=== PATIENT | female | born 1955 | race Caucasian/White ===

== ENCOUNTER 2016-12-11 11:19 | Outpatient (CLI) | payer OTHER ==
--- NOTE | 2016-12-11 12:23 | MMO ---
BILATERAL SCREENING MAMMOGRAM: INDICATION: Annual exam. COMPARISON: Prior exam dated 10/20/14. FINDINGS: The interpretation of the examination was assisted with computer-aided detection. The breast parenchyma demonstrates scattered fibroglandular elements. There are benign-appearing calcifications bilaterally. No new suspicious mass, cluster of microcalcifications, or area of architectural distortion is evide nt. IMPRESSION: BI-RADS category 2 - benign. Recommend routine annual mammographic screening. POS: MAGDY
== END 2016-12-11 11:20 | disposition home or self-care (01) ==
LOC: SCSMAMMO 11:19
PROVIDERS: ATTEND Family Medicine
DX: Z12.31 Encounter for screening mammogram for malignant neoplasm of breast (principal)
CPT/HCPCS: 77067; G0202

== ENCOUNTER 2017-12-12 10:30 | Outpatient (CLI) | payer OTHER ==
--- NOTE | 2017-12-12 16:24 | MMO ---
BILATERAL SCREENING MAMMOGRAMS: Date: 12/12/17 Comparison made to prior exams from 2017 and 2016. This patient's mammogram was interpreted with the assistance of computer-aided detection. FINDINGS: Scattered fibroglandular densities. Scattered benign-appearing calcifications. No evidence of mass or distortion. No significant interval change identified. Recommend one year follow-up. IMPRESSION: BIRADS 2: Benign Finding(s) POS: MAGDY
== END 2017-12-12 10:31 | disposition home or self-care (01) ==
LOC: SCSMAMMO 10:30
PROVIDERS: ATTEND Family Medicine
DX: Z12.31 Encounter for screening mammogram for malignant neoplasm of breast (principal)
CPT/HCPCS: 77067

== ENCOUNTER 2018-06-05 17:52 | Emergency (ER) | payer OTHER ==
[2018-06-05] MEDS ORDERED: Lidocaine 1% PF 5 ML VIAL ONE (18:22)
[2018-06-05] MEDS ORDERED: Lidocaine 1% w/Epinephrine 1:100K 20 ML VIAL ONE (18:23)
[2018-06-05] MEDS ORDERED: Adacel (T-DAP) 0.5 ML SYRINGE ONE (18:39)
== END 2018-06-05 19:54 | disposition home or self-care (01) ==
LOC: SCSER 17:52
DX: S61.412A Laceration without foreign body of left hand, initial encounter (principal); E03.9 Hypothyroidism, unspecified; E78.5 Hyperlipidemia, unspecified; G47.00 Insomnia, unspecified; Z79.82 Long term (current) use of aspirin; Z79.899 Other long term (current) drug therapy; W26.8XXA Contact with other sharp object(s), not elsewhere classified, initial encounter
CPT/HCPCS: 12001; 90471; 90715; J2001

== ENCOUNTER 2018-06-22 10:02 | Outpatient (CLI) | payer OTHER | END 2018-06-22 10:03 | disposition home or self-care (01) | PROVIDERS: ATTEND Otolaryngology Plastic Surgery within the Head & Neck | DX: R13.13 Dysphagia, pharyngeal phase (principal) | CPT/HCPCS: 74230 ==

== ENCOUNTER 2018-07-07 07:37 | Outpatient (CLI) | payer OTHER ==
--- NOTE | 2018-07-07 08:50 | RAD ---
XR Barium Swallow Esophagus HISTORY: Esophageal stricture and gastric sleeve. Patient feels like food gets stuck. COMPARISON: None. FINDINGS: The patient ingested barium and crystals without difficulty. The esophageal mucosa is yariel l. There is some mild dilatation to the distal esophagus and a lack of normal esophageal motility. There is a lack of the normal stripping wave associated with normal peristaltic activity. There are s ome tertiary contractions of the distal esophagus noted. A hiatal hernia is noted. The patient was given a a barium tablet. The tablet passed through the GE j unction region without difficulty, it remained within the hernia during the course of this examination. IMPRESSION: 1. Mild hiatal hernia. 2. Some slight dilatation to the distal esophagus with the lack of normal peristaltic activity as sophia cribed above.
== END 2018-07-07 07:38 | disposition home or self-care (01) ==
LOC: RAD 07:37
PROVIDERS: ATTEND Otolaryngology Plastic Surgery within the Head & Neck
DX: R13.13 Dysphagia, pharyngeal phase (principal); K44.9 Diaphragmatic hernia without obstruction or gangrene; K22.8 Other specified diseases of esophagus; Z87.19 Personal history of other diseases of the digestive system
CPT/HCPCS: 74220

== ENCOUNTER 2018-10-19 07:29 | Outpatient (CLI) | payer OTHER ==
--- NOTE | 2018-10-19 12:45 | NM ---
RADIONUCLIDE GASTRIC EMPTYING SCAN: HISTORY: Gastroesophageal reflux disease without esophagitis. RADIOPHARMACEUTICAL: 2.2 mCi Technetium 99m-sulfur colloid administered orally in scrambled eggs. FINDINGS: There is 32% emptying of the ingested gastric contents at 1 hour, 30% at 2 hours, 56% emptying at 3 h ours, and 54% emptying at 4 hours. The calculated gastric emptying half-time measures 123 minutes. IMPRESSION: Delayed gastric emptying. POS: TPC
== END 2018-10-19 07:30 | disposition home or self-care (01) ==
LOC: NM 07:29
PROVIDERS: ATTEND Specialist
DX: K21.9 Gastro-esophageal reflux disease without esophagitis (principal)
CPT/HCPCS: 78264; A9541

== ENCOUNTER → 2018-10-20 | Day surgery (SDC) | payer OTHER | LOC: ENDO/OP 07:45 | PROVIDERS: ATTEND Specialist | DX: K21.9 Gastro-esophageal reflux disease without esophagitis (principal); E78.5 Hyperlipidemia, unspecified; E07.9 Disorder of thyroid, unspecified; Z98.84 Bariatric surgery status; Z88.1 Allergy status to other antibiotic agents | CPT/HCPCS: 91010 ==

== ENCOUNTER 2018-12-08 14:17 | Outpatient (CLI) | payer OTHER | END 2018-12-08 14:18 | disposition home or self-care (01) | LOC: DTY/OP 14:17 | PROVIDERS: ATTEND Specialist | DX: Z01.818 Encounter for other preprocedural examination (principal); E66.01 Morbid (severe) obesity due to excess calories | CPT/HCPCS: 97802 ==

== ENCOUNTER 2019-01-15 09:30 | Outpatient (CLI) | payer OTHER ==
--- NOTE | 2019-01-17 16:26 | EKG ---
Test Reason : Blood Pressure : / mmHG Vent. Rate : 081 BPM Atrial Rate : 081 BPM P-R Int : 138 ms QRS Dur : 094 ms QT Int : 404 ms P-R-T Axes : 032 049 032 degrees QTc Int : 469 ms Normal sinus rhythm Normal ECG No previous ECGs available Confirmed by DR. Madonna TRUJILLO ([id number]) on 01/17/2019 4:25:37 PM Referred By: VELIA Confirmed By:DR. Madonna TRUJILLO
== END 2019-01-15 09:31 | disposition home or self-care (01) ==
LOC: LABBT 09:30
PROVIDERS: ATTEND Specialist
DX: Z01.818 Encounter for other preprocedural examination (principal); K21.9 Gastro-esophageal reflux disease without esophagitis; Z98.84 Bariatric surgery status
CPT/HCPCS: 93005; 93010

== ENCOUNTER 2019-01-15 13:30 | Inpatient (IN) | payer OTHER ==
[2019-01-19] MEDS ORDERED: Ketorolac Tromethamine 30 MG/ML VIAL ONE (07:11)
[2019-01-19] MEDS ORDERED: cefOXitin 2 GM VIAL ONE (07:11)
[2019-01-19] MEDS ORDERED: Scopolamine 1.5 mg/72 hour Patch ONE (07:11)
[2019-01-19] MEDS ORDERED: Sodium Chloride 0.9% 100 ML ONE (07:12)
[2019-01-19] MEDS ORDERED: Fentanyl 250 MCG/5 ML VIAL ONE (07:14)
[2019-01-19] MEDS ORDERED: Midazolam HCl 2 mg/2 ml Vial ONE (07:14)
[2019-01-19] MEDS ORDERED: Bupivacaine PF 0.5% 30 ML VIAL ONE ×2 (07:19)
[2019-01-19] MEDS ORDERED: Heparin 5,000 UNITS/ML VIAL ONE (07:19)
[2019-01-19] MEDS ORDERED: Lidocaine 1% w/Epinephrine 1:100K 20 ML VIAL ONE (07:19)
[2019-01-19] MEDS ORDERED: Piperacillin/Tazobactam 3.375 GM VIAL ONE (07:23)
[2019-01-19] MEDS ORDERED: Glycopyrrolate 0.2 MG/ML 5 ML SYRINGE ONE (09:51)
[2019-01-19] MEDS ORDERED: PROPOFOL 200 MG/20 ML VIAL ONE (09:51)
[2019-01-19] MEDS ORDERED: Ondansetron PF 4 MG/2 ML Vial ONE (09:51)
[2019-01-19] MEDS ORDERED: Dexamethasone 20 MG/5 ML VIAL ONE (09:51)
[2019-01-19] MEDS ORDERED: Succinylcholine Chloride 20 MG/ML 10 ml SYRINGE FS ONE (09:51)
[2019-01-19] MEDS ORDERED: Rocuronium Bromide 10 MG/ML (10ML VIAL) ONE (09:51)
[2019-01-19] MEDS ORDERED: Promethazine HCl 25 MG/ML VIAL IM PRN (10:59)
[2019-01-19] MEDS ORDERED: Ondansetron PF 4 MG/2 ML Vial IVP PRN (10:59)
[2019-01-19] MEDS ORDERED: Dextrose 50% Abboject 50 ML SYRINGE SLOW IVP PRN (10:59)
[2019-01-19] MEDS ORDERED: hydrALAZINE 20 MG/ML VIAL SLOW IVP PRN (10:59)
[2019-01-19] MEDS ORDERED: Morphine 2 MG/ML SYRINGE SLOW IVP PRN (10:59)
[2019-01-19] MEDS ORDERED: diphenhydrAMINE 50 MG/ML VIAL IVP PRN (10:59)
[2019-01-19] MEDS ORDERED: Morphine 4 MG/ML VIAL SLOW IVP PRN (10:59)
[2019-01-19] MEDS ORDERED: Dextrose 5% in Water 1,000 ML IV PRN (10:59)
[2019-01-19] MEDS ORDERED: Sodium Chloride 0.9% (PF) 10 ML VIAL FS PRN (11:09)
[2019-01-19] MEDS ORDERED: Pantoprazole 40 MG VIAL IVP SCH (11:15)
[2019-01-19] MEDS ORDERED: D5 1/2 NS w/20 mEq KCL 1,000 ML ONE (11:39)
[2019-01-19] MEDS: Ketorolac Tromethamine 30 MG/ML VIAL IVP SCH ×3 (12:00→23:21)
--- NOTE | 2019-01-19 14:20 | OP ---
DATE OF PROCEDURE: 01/19/2019 PREOPERATIVE DIAGNOSIS: History of sleeve gastrectomy with gastroesophageal reflux disease. POSTOPERATIVE DIAGNOSES: 1. History of sleeve gastrectomy with gastroesophageal reflux disease. 2. Substantial hiatal hernia. OPERATIONS PERFORMED: 1. Laparoscopic repair of hiatal hernia. 2. Laparoscopic Wendy-en-Y gastric bypass. CRAB BACKER: Fatuma Chirinos, medical student. ANESTHESIA: General endotracheal. INDICATIONS: The patient is a 63-year-old white female. She has a history of a sleeve gastrectomy several years ago. She has had successful weight loss and her current BMI is about 26.5. She, however, has incapacitating gastroesophageal reflux disease and presents at this time for revision surgery to convert her sleeve to a bypass in treatment of her reflux. DESCRIPTION OF OPERATION: Informed consent was obtained. The patient was taken to the operating room, where general endotracheal anesthesia was obtained with the patient in supine position. Abdomen was prepped with ChloraPrep and draped in sterile fashion. Local anesthetic was infiltrated. A 5-mm infraumbilical incision was created, through which a Veress needle was passed in the peritoneal cavity and pneumoperitoneum was established using carbon dioxide up to pressure of 15 mmHg. A 5-mm trocar port site was established using the same incision. Laparoscopic camera was passed through this port. Under direct vision, 4 additional ports were placed including bilateral subcostal 5-mm ports, a left paramedian 15-mm port, and a right paramedian 12-mm port. Later in the case, I placed an epigastric 5 mm Sofia retractor for elevation of the left lobe of the liver. Examination within the abdomen revealed no adhesions to the anterior abdominal wall. There were some omental adhesions to the left upper quadrant, but that was it. The omentum was split in the midline up to the transverse colon. The ligament of Treitz was identified, and 40 cm distally, the small bowel was divided transversely. 100 cm distally, I created a jejunojejunostomy between the biliary limb and the Wendy limb using a single fire of the PAMELA 60 stapler. The enterotomy was closed with another transverse firing of the same stapler. Mesenteric defect was closed with 2 interrupted [id number] sutures of 3-0 Vicryl. The patient was then placed in reverse Trendelenburg position and examination of the stomach was carried out. She was noted unfortunately to have a substantial hiatal hernia with stomach present within the mediastinum. A fairly lengthy dissection occurred at the hiatus because of scarring from her previous surgery. I was able to meticulously dissect both the left and right crura without injury to the stomach or esophagus. The esophagus was widely mobilized to the abdomen and mediastinal adhesions were taken down. The hiatal hernia was closed with 2 posterior sutures of 0 Ethibond. This provided excellent closure around the esophagus. About 5 cm from the GE junction, the lesser curvature was dissected. I quickly gained access to what remained of the lesser sac. The stomach was then divided with a single transverse fire of the blue load of the [place] stapler. The Orvil was then passed through the mouth and the tip was brought out just posterior to the staple line by incising the stomach. It was only with difficulty that the anvil was able to pass through the oropharynx down into the esophagus. Once it was pulled through the oropharynx, it pulled easily through the esophagus to the gastric staple line. The tube was disconnected from the anvil and removed and gloves were changed. Attention was then turned to the small bowel. An enterotomy was created in the devascularized segment of the small bowel. The EEA 25 stapler was advanced uneventfully into the small bowel, where it was advanced beyond the split in the mesentery. The spike was advanced antimesenteric through the small bowel wall and secured to the anvil within the stomach. These 2 segments were approximated and anastomosed by firing the stapler. The redundant segment of small bowel was removed along with the enterotomy with a final firing of the white load of the [place] stapler. The anastomosis was buttressed with 3 interrupted sutures of 3-0 Vicryl. The OG tube was then passed through the anastomosis and the anastomosis was air leak tested while under water with no evidence of leak. All irrigant was aspirated. The fascial defect at the 15 and 12-mm port sites were closed with 0 Vicryl suture using a GraNee needle. All ports and instruments were removed under direct vision. Pneumoperitoneum was carefully evacuated. 0.25% Marcaine with epinephrine was infiltrated at each port sites. Skin edge was approximated with 4-0 Monocryl subcuticular suture. Dermabond was placed externally. There were no complications. The patient tolerated the procedure well and was taken to recovery room in stable condition. Job ID: [id number]
[2019-01-19] MEDS: D5 1/2 NS w/20 mEq KCL 1,000 ML IV SCH ×2 (16:06→18:24)
[2019-01-19] MEDS: Acetaminophen 1,000 MG in Premix Bag 1 BAG IVPB SCH ×2 (16:07→19:56)
[2019-01-19 18:36] VITALS: BMI 27.5
[2019-01-19] MEDS ORDERED: Enoxaparin Sodium 40 MG/0.4 ML SYRINGE SC SCH (21:00)
[2019-01-20] MEDS: Acetaminophen 1,000 MG in Premix Bag 1 BAG IVPB SCH ×4 (01:21→23:04)
[2019-01-20] MEDS: D5 1/2 NS w/20 mEq KCL 1,000 ML IV SCH ×3 (01:21→21:02)
[2019-01-20 06:08] LABS: #Lymphocytes 1.5 thou/uL (1.20-3.40); #Monocytes 0.7 thou/uL (0.11-0.59); #Neutrophils 10.1 thou/uL (1.40-6.50); %Basophils 0.1 % (0.0-1.0); %Eosinophils 0.2 % (0.0-10.0); %Lymphocytes 12.4 % (21.0-51.0); %Monocytes 5.5 % (0.0-10.0); %Neutrophils 81.8 % (42.0-75.0); Mean Corpuscular HGB CONC 33.9 g/dL (32.0-36.0); Mean Corpuscular Hemoglobin 29.9 pg (27.0-31.0); Mean Corpuscular Volume 88.1 fL (78.0-98.0); Mean Platelet Volume 7.6 fL (7.4-10.4); Platelet Count 155 thou/uL (130-400); RBC Distribution Width 11.6 % (11.5-14.5); Red Blood Cell (RBC) Count 4.01 mill/uL (4.20-5.40); White Blood Cell (WBC) Count 12.3 thou/uL (4.8-10.8)
[2019-01-20] MEDS: Ketorolac Tromethamine 30 MG/ML VIAL IVP SCH (06:12)
[2019-01-20 06:25] LABS: Anion Gap 12 mmol/L (10-20); BUN (Urea Nitrogen) 25 mg/dL (9.8-20.1); Calc. Creatinine Clearance 90 mL/min (70-130); Calcium 7.8 mg/dL (7.8-10.44); Carbon Dioxide 19 mmol/L (23-31); Chloride 107 mmol/L (98-107); Estimated GFR-MDRD 86; Glucose 111 mg/dL (80-115); Potassium 4.3 mmol/L (3.5-5.1); Sodium 134 mmol/L (136-145)
--- NOTE | 2019-01-20 07:35 | PDOC.GSPN ---
Surgery Progress Note: Subj - Subjective Narrative: Ms. Vo is a 63 year old female who is POD 1 from a laparoscopic Wendy en Y gastric bypass with hiatal hernia repair for severe reflux after a sleeve gastrectomy. Overnight she had bloody emesis x3 that was a dark maroon color rather than bright red blood. She reports some nausea just prior to vomiting, but otherwise feels well. She has some soreness but minimal pain, mainly at the LLQ incision site. She is ambulating without difficulty and is voiding normally. She was on a bariatric clear liquid diet overnight, but reports that she mainly has been taking only ice chips. She is on D5 1/2 NS with 20 KCl at 75 mL/hr. She denies any GERD symptoms overnight. She has not had any bowel movements since surgery. Surgery Progress Note: Obj - Vital signs Vital signs: Vital Signs - Most Recent Temp Pulse Resp BP Pulse Ox 98.5 F 92 16 95/65 93 L 01/20/19 04:05 01/20/19 04:05 01/20/19 04:05 01/20/19 04:05 01/20/19 04:05 - Physical Exam General: no distress, other (mild pain, particularly at the LLQ incision site) Cardiovascular: regular rate and rhythm, no murmur Respiratory: clear to auscultation, normal respiratory effort (mild abdominal discomfort with deep inspiration) Abdomen: soft, nondistended, decreased bowel sounds (minimal bowel sounds present on auscultation), appropriately tender Wound: healing well (normal ecchymosis surrounding the six incision sites). negative: drainage, erythma/edema Surgery Progress Note: Results - Labs Result Diagrams: 01/20/19 05:11 01/20/19 05:10 Surgery Progress Note: A/P - Problem (1) S/P gastric bypass Current Visit: Yes Code(s): Z98.84 - BARIATRIC SURGERY STATUS Status: Acute Assessment and Plan: Patient is a 63 year old female who is POD 1 from a laparoscopic wendy en y gastric bypass with hiatal hernia repair for severe GERD after sleeve gastrectomy. Due to her recurrent bloody emesis, she has been made NPO and we will consult GI and plan for an endoscopy today to assess a source of bleeding. We will hold Lovenox at this time due to bleeding and will hold all NSAIDs in the event that an ulcer is the source. We will continue IV tylenol for pain control. Her Hgb is 12 this morning and WBC was 12.3 today with a left shift, however she has been afebrile since surgery. We will continue to monitor for signs of infection and administer antibiotics if she becomes febrile or develops signs of infection. We will recheck a CBC in the morning. Her vital signs have been stable overnight, however her last BP was 95/65 and due to the multiple episodes of vomiting we will increase her D5 1/2 NS with 20 KCl rate from 75 to 125 mL/hr. We will await GI results and adjust plan accordingly.
[2019-01-20] MEDS ORDERED: Pantoprazole 40 MG VIAL IVP SCH (09:00)
[2019-01-20] MEDS ORDERED: EPINEPHrine 1 MG/10 ML Abboject SYRINGE ONE (09:38)
[2019-01-20] MEDS ORDERED: PROPOFOL 200 MG/20 ML VIAL ONE (09:38)
[2019-01-20] MEDS ORDERED: Hydrocodone-Acetamin 15 ML UDCUP PO PRN (12:00)
[2019-01-20 18:06] LABS: Hemoglobin 11.5 g/dL (12.0-16.0)
--- NOTE | 2019-01-20 18:55 | OP ---
DATE OF PROCEDURE: 01/20/2019 PROCEDURE PERFORMED: Esophagogastroduodenoscopy to control hemorrhage. PREMEDICATION: Given by Anesthesiology Department. PREPROCEDURE DIAGNOSES: 1. Hematemesis. 2. Status post gastrojejunostomy with hiatal hernia repair. POSTPROCEDURE DIAGNOSES: 1. Active anastomotic bleeding. 2. Large blood clot in the gastric pouch. DESCRIPTION OF PROCEDURE: Written consent was obtained prior to procedure. After adequate sedation, forward-viewing endoscope was advanced down the stomach under direct vision. There was bloody fluid refluxing back into the esophagus, which was suctioned. The endoscope was advanced into the gastric pouch, in which a large clot was seen precluding visualization of much of the pouch. The endoscope was gently passed down to the site of the clot into the anastomosis. There appeared to be active oozing in half of the circumference of the anastomosis. There was blood throughout the jejunal loop. The endoscope was removed and exchanged for a therapeutic endoscope. Repeat endoscopy was performed. A total of 4 mL of 1:10,000 epinephrine was injected into the lateral side of the anastomosis. A 10-Lao BICAP probe was then used to cauterize the bleeding edge of the anastomosis with good hemostasis. I irrigated and confirmed good hemostasis. The rest of the gastric pouch was not able to be visualized because of the large clot. The esophagus was not fully inspected as it was diffusely heme-stained. The instruments were fully removed. The patient tolerated the procedure well. ASSESSMENT: Anastomosis bleeding in about half of the circumference, status post epinephrine injection and BICAP cautery with good hemostasis. RECOMMENDATIONS: 1. Ice chips, otherwise n.p.o. for now. 2. Trend blood count. If the patient does well, can advance diet tomorrow. Job ID: [id number]
--- NOTE | 2019-01-20 19:05 | CON ---
DATE OF CONSULTATION: 01/20/2019 REASON FOR CONSULTATION: Vomiting blood. HISTORY OF PRESENT ILLNESS: Ms. Vo is a 63-year-old female, who underwent a conversion surgery from gastric sleeve to Wendy-en-Y gastrojejunostomy with a hiatal hernia repair yesterday by Dr. El. Yesterday evening, she had three episodes of hematemesis involving described as red blood and clots. She reports having two further episodes earlier this morning, but in small amount. She denies any abdominal pain or discomfort. She does not have any antecedent gastrointestinal hemorrhage. She does have history of chronic GE reflux. She did have gastric sleeve performed in 2012. Currently, she is hemodynamically stable with normal vitals. She denies any abdominal pain, although she does have some nausea. PAST MEDICAL HISTORY: 1. Chronic GE reflux. 2. Diverticulosis coli. 3. Hypertension. 4. Arthritis. 5. Anxiety/depression. 6. Hyperlipidemia. PAST SURGICAL HISTORY: Include; thyroidectomy, cholecystectomy, hysterectomy, shoulder surgery, tubal ligation, gastric sleeve in 2012 followed by fito brown. ALLERGIES: INCLUDE; ERYTHROMYCIN, LEVAQUIN. MEDICATIONS: At home include; 1. Nasacort. 2. Trazodone. 3. Albuterol inhaler. 4. Vyvanse. 5. Boniva. 6. VESIcare. 7. Meloxicam. 8. Losartan. 9. Atorvastatin. 10. Synthroid. 11. Gabapentin. 12. Wellbutrin. 13. Amlodipine. SOCIAL HISTORY: The patient is . No tobacco or alcohol usage. FAMILY HISTORY: Negative for any known GI problem, liver disease, or GI malignancy. REVIEW OF SYSTEMS: Ten-point review of systems did not show any other reported complaints or any other pertinent positives or negatives. PHYSICAL EXAMINATION: VITAL SIGNS: Temperature is 98.9, blood pressure 108/73, pulse of 83. GENERAL: She is alert, no distress. HEENT: Shows anicteric sclerae. Oropharynx is clear. NECK: Supple. CV: Shows normal S1 and S2. Regular rate and rhythm. CHEST: Shows breath sounds. ABDOMEN: Soft, mildly tender . No distention. No tympany. She has active bowel sounds. EXTREMITIES: Show no edema. LABORATORY DATA: WBC is 12.3, hemoglobin 12.0 at 05:00 this morning, platelet count 155. Electrolytes within normal range, creatinine is 0.69. ASSESSMENT: Upper gastrointestinal hemorrhage, characterized as hematemesis. She is postop day 1 from gastric sleeve conversion to gastrojejunostomy along with hiatal hernia repair. Currently, she appears to be stable with normal vitals. Bleeding appears to have slow down or stopped. RECOMMENDATIONS: 1. Proceed with upper endoscopy today. 2. Further recommendations to follow pending endoscopic finding. Job ID: [id number] [facility]
[2019-01-20] MEDS: Pantoprazole 40 MG VIAL IVP SCH (20:55)
[2019-01-20] MEDS ORDERED: D5 1/2 NS w/20 mEq KCL 1,000 ML IV SCH (21:15)
[2019-01-21 06:07] LABS: #Eosinphils 0.2 thou/uL (0.0-0.7); #Lymphocytes 1.5 thou/uL (1.20-3.40); #Monocytes 0.4 thou/uL (0.11-0.59); #Neutrophils 7.1 thou/uL (1.40-6.50); %Basophils 0.3 % (0.0-1.0); %Eosinophils 2.1 % (0.0-10.0); %Lymphocytes 16.3 % (21.0-51.0); %Neutrophils 77.3 % (42.0-75.0); Mean Corpuscular HGB CONC 33.5 g/dL (32.0-36.0); Mean Corpuscular Hemoglobin 29.8 pg (27.0-31.0); Mean Corpuscular Volume 89.2 fL (78.0-98.0); Mean Platelet Volume 7.3 fL (7.4-10.4); Platelet Count 155 thou/uL (130-400); RBC Distribution Width 11.6 % (11.5-14.5); White Blood Cell (WBC) Count 9.2 thou/uL (4.8-10.8)
[2019-01-21 06:25] LABS: Anion Gap 9 mmol/L (10-20); BUN (Urea Nitrogen) 11 mg/dL (9.8-20.1); Calc. Creatinine Clearance 99 mL/min (70-130); Calcium 7.8 mg/dL (7.8-10.44); Carbon Dioxide 24 mmol/L (23-31); Chloride 108 mmol/L (98-107); Estimated GFR-MDRD Greater than 90; Glucose 100 mg/dL (80-115); Potassium 3.6 mmol/L (3.5-5.1); Sodium 137 mmol/L (136-145)
--- NOTE | 2019-01-21 07:05 | PDOC.GSPN ---
Surgery Progress Note: Subj - Subjective Narrative: Ms. Vo is a 63 y/o female POD#2 from a lap diego-en-y gastric bypass with hiatal hernia repair for severe reflux after sleeve gastrectomy. Yesterday she had an upper endoscopy for post op hematemesis and she appeared to have an anastomotic bleed and a large blood clot in the gastric pouch. The bleeding was controlled with epinephrine injection and bipolar electrocautery. Today she says she is feeling better, but still vomiting. The emesis is now brown and foamy and she had 12 episodes of emesis in the last 24 hours. She denies heartburn symptoms. She still has not had a BM, but has passed flatus. She did not have a lot of dinner last night (bariatric clear liquid diet) and has a poor appetite. The dinner did not elicit another episode of emesis. She has been urinating without problems. Her pain is controlled at 3/10 and only worsens with movement. She has been ambulating and using incentive spirometry. She has noticed mild periorbital edema of her left eye, but otherwise has no other complaints. Surgery Progress Note: Obj - Vital signs Vital signs: Vital Signs - Most Recent Temp Pulse Resp BP Pulse Ox 98.3 F 82 16 117/77 94 L 01/21/19 04:09 01/21/19 04:09 01/21/19 04:09 01/21/19 04:09 01/21/19 04:09 - Physical Exam General: no distress ENT: no congestion, normal mucosa, other (mild periorbital edema on the left. No erythema. Non-tender to palpation.) Neck: other (supple neck, no lymphadenopathy) Cardiovascular: regular rate and rhythm, other (2/6 systolic mumur best heard at the left sternal border, 2nd intercostal space. No peripheral edema.) Respiratory: clear to auscultation Abdomen: soft, nondistended, appropriately tender Wound: healing well, other (No drainage, but mild echymosis around 2 laparoscopic incision sites.) Surgery Progress Note: Results - Labs Result Diagrams: 01/21/19 05:34 01/21/19 05:34 Lab results: Laboratory Results - last 24 hr 01/21/19 01/21/19 05:34 05:34 WBC 9.2 RBC 3.70 L Hgb 11.0 L Hct 33.0 L MCV 89.2 MCH 29.8 MCHC 33.5 RDW 11.6 Plt Count 155 MPV 7.3 L Neutrophils % 77.3 H Lymphocytes % 16.3 L Monocytes % 4.0 Eosinophils % 2.1 Basophils % 0.3 Neutrophils # 7.1 H Lymphocytes # 1.5 Monocytes # 0.4 Eosinophils # 0.2 Basophils # 0.0 Sodium 137 Potassium 3.6 Chloride 108 H Carbon Dioxide 24 Anion Gap 9 L BUN 11 Creatinine 0.63 Estimated GFR (MDRD) Greater than 90 Glucose 100 Calcium 7.8 Surgery Progress Note: A/P - Plan Plan: Ms. Vo is a 63 y/o female POD#2 from a lap diego-en-y gastric bypass with hiatal hernia repair for severe reflux after sleeve gastrectomy. She still has emesis, but the contents appear to be residual blood and it is unlikely that she is still having active anastamotic bleeding. She has a poor appetite and did not have a lot of dinner last night. Plan is to continue her on bariatric clear liquid diet this morning and continue IV fluids (D5 1/2 NS w/ 20 mEq KCl @ 75 ml/hr). If she is able to eat more today without issues, we can consider advancing diet to bariatric full liquids tomorrow/later today as tolerated. She has passed flatus and we will continue to monitor for return of full bowel function. Her hemoglobin yesterday after the upper endoscopy was 11.5 and is 11.0 this AM, which is appropriate. WBC has normalized to 9.2 this AM. Electrolytes are essentially normal. She has not had any episodes of tachycardia or hypotension since her upper endoscopy yesterday. The periorbital edema appears self limiting and will likely resolve as she advances her diet and is taken off IV fluids. Patient was encouraged to continue ambulating and incentive spirometry.
[2019-01-21] MEDS: Pantoprazole 40 MG VIAL IVP SCH (08:35)
--- NOTE | 2019-01-21 09:25 | RAD ---
THIRTY ML GASTROGRAFIN SWALLOW: HISTORY: Status post gastric sleeve revision. FINDINGS: Fluoroscopy had a malfunction. Therefore, 2 images were obtained after the patient ingested 30 cc of Gastrografin A small amount of Gastrografin noted in the distal esophagus. Gastrografin passes from the residual s tomach into multiple small bowel loops. No leak or extravasation. Suture chain in surgical clips are identified. IMPRESSION: No evidence of leak or extravasation. Transcribed Date/Time: 01/21/2019 9:36 AM
--- NOTE | 2019-01-21 10:15 | PRG ---
DATE OF SERVICE: 01/21/2019 SUBJECTIVE: Ms. Vo has had no further hematemesis since her procedure yesterday. She has had some continued nausea, but is tolerating her liquid diet well this morning. She has remained hemodynamically stable. No significant abdominal pain. She has passed only a couple of small solid stools. No melena. PHYSICAL EXAMINATION: VITAL SIGNS: Temperature 97.9, pulse 79, blood pressure 128/85, and 94% oxygen saturation on room air. GENERAL: No acute distress. HEART: Regular rate and rhythm. LUNGS: Clear to auscultation bilaterally. ABDOMEN: Soft and nontender to palpation. EXTREMITIES: No peripheral edema. LABORATORY STUDIES: WBC 9.2; hemoglobin 11.0, stable from 11.5 last night; platelets 155. Sodium 137, potassium 3.6, BUN down to 11 from 25 yesterday, creatinine 0.63. ASSESSMENT AND PLAN: Upper gastrointestinal bleeding, from gastrojejunostomy anastomosis site, status post endoscopic therapy with epinephrine injection and bipolar cautery performed by Dr. Spencer yesterday. There has been no further evidence of recurrent bleeding since her procedure yesterday. Hemoglobin is basically stable. Dietary advancement per the Surgical Service. I would continue the Protonix 40 mg IV q.12 hours for now. Transition to twice daily dosing on hospital discharge. Please call back anytime with questions or concerns. Job ID: [id number]
[2019-01-21] MEDS: Acetaminophen 1,000 MG in Premix Bag 1 BAG IVPB SCH ×2 (10:37→13:07)
[2019-01-21 12:07] VITALS: BP 122/76; TEMP 98.2
--- NOTE | 2019-01-22 14:29 | DIS ---
DATE OF ADMISSION: 01/19/2019 DATE OF DISCHARGE: 01/21/2019 ADMISSION DIAGNOSIS: History of morbid obesity with previous sleeve gastrectomy and subsequent severe gastroesophageal reflux disease. DISCHARGE DIAGNOSIS: History of morbid obesity with previous sleeve gastrectomy and subsequent severe gastroesophageal reflux disease with finding of a hiatal hernia and an episode of postoperative anastomotic bleeding. OPERATIONS/PROCEDURES PERFORMED: On January 19, she underwent a laparoscopic repair of a hiatal hernia and a laparoscopic Wendy-en-Y gastric bypass as a revisional surgery from her prior sleeve. On January 20, Dr. Alexander Spencer performed an esophagogastroduodenoscopy to control hemorrhage from the gastrojejunostomy anastomosis. ADMISSION HISTORY: Patient is a 63-year-old white female. She had undergone a sleeve gastrectomy in 2012 in [place]. She had lost an appropriate amount of weight and had lost weight down to a BMI of 26.8. She unfortunately has had progressive problems with gastroesophageal reflux, for which she has seen Gastroenterology. She has attempted treatment with a variety of modalities, but with decreasing efficacy and increasing symptoms. She presented requesting conversion to a gastric bypass to help control her reflux. HOSPITAL COURSE: She presented to the hospital on the day of admission and underwent an uneventful repair of a hiatal hernia and conversion from a prior sleeve gastrectomy into a Wendy-en-Y gastric bypass. Her surgery was uneventful. However, the following morning, she had three episodes of hematemesis of vomiting an estimated 200 mL of blood each time. After the third episode of this when it appeared to be continuing, I consulted Gastroenterology and Dr. Spencer graciously took the patient to the operating room, where he performed an upper GI endoscopy. He removed a blood clot from within the gastric pouch and recognized oozing along the staple line which he was able to control with a combination of epinephrine injection and electrocautery. Thereafter, she had no further episodes of blood loss or hematemesis. Her hemoglobin level remained stable and was 12 the morning after her surgery and never went any lower than 11.0. After he performed endoscopy and control of the bleeding, she had no further problems and was able to advance her diet unremarkably. Because of the bleeding episode, her hospitalization was lengthened by one day, so she was discharged home on postoperative day number 2 instead of postoperative day number 1. She had remained entirely hemodynamically stable throughout and had no significant discomfort or problems before or after her bleeding episode. She was discharged home on the and asked to follow up with myself in 2 weeks as previously scheduled. She is instructed to continue to take her proton pump inhibitor and was given a prescription for hydrocodone elixir to use as necessary. She was instructed regarding her activity and her dietary advancement as well as resumption of her preoperative medications. Job ID: [id number]
--- NOTE | 2019-01-22 22:23 | PQF ---
Mable Vo JOSE BACON [id number] CLINICAL DOCUMENTATION CLARIFICATION FORM: POST DISCHARGE Addendum to original discharge summary date: ____ Late entry note date: __ DATE: 01/22/19 ATTN: Jose Bacon Please exercise your independent, professional judgment in responding to the clarification form. Clinical indicators are provided on the bottom of this form for your review Please check appropriate box(s): [ ] GERD is a postoperative complication of prior Bariatric Surgery [ ] GERD is not a postoperative complication of prior Bariatric Surgery [ ] Other diagnosis [ ] Unable to determine In addition, please specify: Present on Admission (POA): [ ] Yes [ ] No [ ] Unable to determine CLINICAL INDICATORS - SIGNS / SYMPTOMS / LABS Scanned H&P p1 the gastric motility study showed delayed gastric emptying. Esophageal manometry revealed findings consistent with reflux Scanned H&P p1 She reports intermittent episodes of severe reflux symptoms and regurgitation. Scanned H&P p1 She presents today for re-evaluation of her progressive GERD symptoms, she is ready to proceed with reversional bariatric surgery [employer] Scanned H&P p1 63 year-old Scanned H&P p1 s/p Gastric sleeve in 2012 Scanned H&P p1 GERD TREATMENT: Operative report 01/19 Reversional bariatric surgery from sleeve gastrectomy to gastric bypass MAR 01/19 Protonix drip (This form is maintained as a part of the permanent medical record) [address] All Rights Reserved [email or web address] [not provided] [email or web address]
== END 2019-01-21 16:06 | disposition home or self-care (01) | DRG 328 ==
LOC: SURG A 01-19 06:00 → SURG B 01-19 12:39
PROVIDERS: ADMIT Specialist; ATTEND Specialist
PROC: 0D164ZA Bypass Stomach to Jejunum, Percutaneous Endoscopic Approach (ICD-10-PCS; principal; 2019-01-19)
PROC: 0BQT4ZZ Repair Diaphragm, Percutaneous Endoscopic Approach (ICD-10-PCS; 2019-01-19)
PROC: 0W3P8ZZ Control Bleeding in Gastrointestinal Tract, Via Natural or Artificial Opening Endoscopic (ICD-10-PCS; 2019-01-20)
PROC: 3E0G8GC Introduction of Other Therapeutic Substance into Upper GI, Via Natural or Artificial Opening Endoscopic (ICD-10-PCS; 2019-01-20)
DX: K21.9 Gastro-esophageal reflux disease without esophagitis (principal); E78.5 Hyperlipidemia, unspecified; E89.0 Postprocedural hypothyroidism; F32.9 Major depressive disorder, single episode, unspecified; F98.8 Other specified behavioral and emotional disorders with onset usually occurring in childhood and adolescence; F41.9 Anxiety disorder, unspecified; K44.9 Diaphragmatic hernia without obstruction or gangrene; K91.840 Postprocedural hemorrhage of a digestive system organ or structure following a digestive system procedure; Y83.2 Surgical operation with anastomosis, bypass or graft as the cause of abnormal reaction of the patient, or of later complication, without mention of misadventure at the time of the procedure; Z98.84 Bariatric surgery status; Z90.49 Acquired absence of other specified parts of digestive tract; Z90.710 Acquired absence of both cervix and uterus; Z79.899 Other long term (current) drug therapy; Z79.890 Hormone replacement therapy
CPT/HCPCS: 36415; 74241; 80048; 85025; C9113; J0131; J0171; J0694; J1100; J1644; J1650; J1885; J2250; J2405; J2543; J2704; J3010; J3490; S0020

== ENCOUNTER → 2019-02-04 | Day surgery (SDC) | payer OTHER ==
[~2019-02-04] MED LIST: Lactated Ringer's 1,000 ML IV SCH; Multivitamins, Adult 10 ML, Thiamine HCl 100 MG, Folic Acid 1 MG in Dextrose 5 %-0.45 %... IV SCH
[2019-02-04 17:09] VITALS: BP 130/64; TEMP 97.7
== END ==
LOC: ONC/OP 16:28
PROVIDERS: ATTEND Specialist
DX: Z51.89 Encounter for other specified aftercare (principal)
CPT/HCPCS: 96361; 96365; 96366; J3411; J7042